=== PATIENT | male | born 1970 ===

== ENCOUNTER 2017-12-02 23:02 | Inpatient (IN) | payer MEDICARE ==
[2017-12-02] MEDS ORDERED: ASPIRIN PO ONE (23:21)
[2017-12-02 23:49] LABS: Basophils # (Auto) 0.1 K/mm3 (0.0-0.1); Basophils % (Auto) 0.9 % (0.0-1.8); Eosinophils # (Auto) 0.2 K/mm3 (0.0-0.4); Eosinophils % (Auto) 1.3 % (0.0-4.3); Hematocrit 32.4 % (35.5-45.6); Hemoglobin 10.4 gm/dl (11.8-15.2); Lymphocytes # (Auto) 3.4 K/mm3 (1.2-5.4); Lymphocytes % (Auto) 27.3 % (13.4-35.0); Mean Corpuscular HGB Conc 32 % (32-34); Mean Corpuscular Hemoglobin 27 pg (28-32); Mean Corpuscular Volume 85 fl (84-94); Monocytes # (Auto) 1.2 K/mm3 (0.0-0.8); Monocytes % (Auto) 9.2 % (0.0-7.3); Platelet Count 222 K/mm3 (140-440); Red Blood Count 3.81 M/mm3 (3.65-5.03); Red Cell Distribution Width 15.1 % (13.2-15.2)
[2017-12-03 00:42] LABS: Calcium 10.1 mg/dL (8.4-10.2)
[2017-12-03] MEDS ORDERED: TYLENOL PO ONE (01:20)
[2017-12-03] MEDS ORDERED: APRESOLINE IV ONE (01:20)
--- NOTE | 2017-12-03 01:24 | Emergency Department Report ---
ED Chest Pain HPI - General Chief Complaint: Chest Pain Stated Complaint: CHEST PAIN Time Seen by Provider: 12/03/17 01:12 Source: patient Mode of arrival: Ambulatory Limitations: No Limitations - History of Present Illness Initial Comments: Patient is a 47-year-old male history of hypertension and end stage renal disease on hemodialysis. Patient presented to the ER complaining of left-sided chest pain and headache since yesterday. Patient stated that his last dialysis was Saturday. His blood pressure in the ER is 201/119. Patient describes his chest pain as left-sided, heaviness, does not radiates associated shortness of breath. Patient denied any fever or cough. MD Complaint: chest pain -: days(s) Onset: during rest Pain Location: left chest Pain Radiation: none Severity: moderate Severity scale (0 -10): 6 Quality: heaviness - Related Data Allergies Allergy/AdvReac Type Severity Reaction Status Date / Time No Known Allergies Allergy Verified 12/02/17 23:21 Heart Score - HEART Score History: Moderately suspicious EKG: Non-specific Age: 45-65 Risk factors: > 3 risk factors or hx of atherosclerotic disease Troponin: < normal limit HEART Score: 5 - Critical Actions Critical Actions: 4-6 pts:12-16.6% risk of adverse cardiac event. Should be admitted ED Review of Systems ROS: Stated complaint: CHEST PAIN Other details as noted in HPI Comment: All other systems reviewed and negative Constitutional: denies: chills, fever Respiratory: denies: cough, orthopnea Cardiovascular: chest pain, dyspnea on exertion, orthopnea. denies: palpitations Gastrointestinal: denies: abdominal pain, nausea, vomiting, diarrhea, constipation, hematemesis, hematochezia Musculoskeletal: denies: back pain Neurological: headache. denies: weakness, numbness, paresthesias, confusion, abnormal gait, vertigo ED Past Medical Hx - Past Medical History Previous Medical History?: Yes Hx Hypertension: Yes Hx Renal Disease: Yes (Dialysis Tues, th, Sat) Additional medical history: "weak heart muscle". sleep apnea - Surgical History Past Surgical History?: Yes Hx Internal Defibrillator: Yes Additional Surgical History: left shunt upper arm. tendon repair left hand. right ankle pins and screws. - Social History Smoking Status: Never Smoker Substance Use Type: None ED Physical Exam - General Limitations: No Limitations General appearance: alert, in no apparent distress - Head Head exam: Present: atraumatic, normocephalic, normal inspection - Eye Eye exam: Present: normal appearance, PERRL - ENT ENT exam: Present: normal exam, normal orophraynx, mucous membranes moist - Neck Neck exam: Present: normal inspection, full ROM. Absent: tenderness, meningismus, lymphadenopathy - Respiratory Respiratory exam: Present: normal lung sounds bilaterally, rales, decreased breath sounds. Absent: wheezes, rhonchi, stridor, accessory muscle use, prolonged expiratory - Cardiovascular Cardiovascular Exam: Present: regular rate, normal rhythm, normal heart sounds - GI/Abdominal GI/Abdominal exam: Present: soft, normal bowel sounds. Absent: distended, tenderness, guarding, rebound, rigid, organomegaly, mass, bruit, pulsatile mass , hernia - Extremities Exam Extremities exam: Present: normal inspection, full ROM, normal capillary refill - Back Exam Back exam: Present: normal inspection, full ROM. Absent: tenderness, CVA tenderness (R), CVA tenderness (L) - Neurological Exam Neurological exam: Present: alert, oriented X3, CN II-XII intact, normal gait - Skin Skin exam: Present: warm, intact, normal color ED Course Vital Signs 12/02/17 23:16 Temperature 98.4 F Pulse Rate 97 H Respiratory 18 Rate Blood Pressure 201/119 O2 Sat by Pulse 98 Oximetry - Reevaluation(s) Reevaluation #1: 12/03/17 02:14 I discussed the patient is Dr. Perez who is on for Dr. Holcomb. Dr. Perez stated that patient will need to be admitted to the hospitalist and he will do dialysis in the morning. ED Medical Decision Making - Lab Data Result diagrams: 12/02/17 23:31 12/02/17 23:31 - EKG Data -: EKG Interpreted by Ny EKG shows normal: sinus rhythm - EKG Data Interpretation: no acute changes - Radiology Data Radiology results: report reviewed Referring Physician: ZACHARY OLIVER Patient Name: ANGELITO FREGOSO Date of : 1970 Sex: Male Report Date: 2017-12-03 Report Status: Finalized Findings [facility] [address] [place] [address] XRay Report Signed Patient: ANGELITO FREGOSO MR#: [id number] : 1970 Acct:[id number] Age/Sex: 47 / M ADM Date: 12/02/17 Loc: ED Attending Dr: Ordering Physician: ZACHARY OLIVER Date of Service: 12/03/17 Procedure(s): XR chest 1V ap Accession Number(s): [id number] cc: ZACHARY OLIVER Fluoro Time In Minutes: FINAL REPORT PROCEDURE: XR CHEST 1V AP TECHNIQUE: Chest radiograph anteroposterior view. CPT 55892 HISTORY: chest pain COMPARISON: No prior studies are available for comparison. FINDINGS: Heart: Slightly enlarged Mediastinum/Vessels: Normal. Lungs/Pleural space: Lungs are clear and expanded. There are no infiltrates, effusions or pneumothoraces.. Bony thorax: No acute osseous abnormality. Life support devices: Pacemaker leads are in proper position.. IMPRESSION: Heart is borderline enlarged. There are no infiltrates, effusions or pneumothoraces. Transcribed By: CO Dictated By: TARIQ QUINONES MD Electronically Authenticated By: TARIQ QUINONES MD Signed Date/Time: 12/03/17142 DD/ 2 TD/TT: 12/03/17142 - Medical Decision Making I discussed the patient was Dr. Ema Benavidez, she agreed to admit the patient to her service. Critical care attestation.: If time is entered above; I have spent that time in minutes in the direct care of this critically ill patient, excluding procedure time. ED Disposition Clinical Impression: Volume overload, ESRD needing dialysis, Headache Disposition: - OP ADMIT IP TO THIS HOSP Is pt being admited?: Yes Condition: Stable Referrals: PRIMARY CARE, [Primary Care Provider] - 3-5 Days
--- NOTE | 2017-12-03 01:48 | XRay Report ---
FINAL REPORT PROCEDURE: XR CHEST 1V AP TECHNIQUE: Chest radiograph anteroposterior view. CPT 56878 HISTORY: chest pain COMPARISON: No prior studies are available for comparison. FINDINGS: Heart: Slightly enlarged Mediastinum/Vessels: Normal. Lungs/Pleural space: Lungs are clear and expanded. There are no infiltrates, effusions or pneumothoraces.. Bony thorax: No acute osseous abnormality. Life support devices: Pacemaker leads are in proper position.. IMPRESSION: Heart is borderline enlarged. There are no infiltrates, effusions or pneumothoraces.
[2017-12-03 02:02] LABS: Chol/HDL Ratio 4.26 %
[2017-12-03] MEDS ORDERED: ASPIRIN ONE (02:28)
--- NOTE | 2017-12-03 02:45 | Cat Scan Report ---
FINAL REPORT PROCEDURE: CT HEAD/BRAIN WO CON TECHNIQUE: Computerized tomography of the head was performed without contrast material. HISTORY: headache, BP 201/119 COMPARISON: No prior studies are available for comparison. FINDINGS: Skull and scalp: Normal. Paranasal sinuses: Normal. Ventricles and subarachnoid spaces: Normal. Cerebrum: No evidence of hemorrhage, acute infarction or mass . Cerebellum and brainstem: No evidence of hemorrhage, acute infarction or mass. Vasculature: Normal. Comments: None. IMPRESSION: Normal Examination
[2017-12-03] MEDS ORDERED: ZOFRAN IV PRN (03:14)
[2017-12-03] MEDS ORDERED: SODIUM CHLORIDE FLUSH SYRINGE 10 ML IV PRN (03:14)
--- NOTE | 2017-12-03 03:22 | History and Physical Report ---
History of Present Illness Date of examination: 12/03/17 History of present illness: 47-year-old man with a history of hypertension, end-stage renal disease on dialysis, Saturday, , so comes emergency room with complaints of shortness of breath, nausea vomiting 1 week. Also complaining of chest pain in the left chest which she described as sharp in nature, intensity 5/10, no radiation and he cannot identify exacerbating or relieving factors. Admits to shortness of breath, no diaphoresis or palpitation. He had a stress test less than 6 months ago at [facility], results unknown Review of systems Constitutional: no weight loss, chills Ears, eyes, nose, mouth and throat: no nasal congestion, no nasal discharge, no sinus pressure, no vision change, no red eye. Neck: No neck pain or rigidity. Cardiovascular: no palpitations Respiratory: No cough Gastrointestinal: no abdominal pain, hematochezia Genitourinary : no dysuria, frequency , no hematuria Musculoskeletal: no joint swelling or muscle ache Integumentary: no rash, no pruritis Neurological: no parathesias, no numbness, no focal weakness Endocrine: no cold or heat intolerance, no polyuria or polydipsia Hematologic/Lymphatic: no easy bruising, no easy bleeding, no gland swelling Allergic/Immunologic: no urticaria, no angioedema. PAST MEDICAL HISTORY: hypertension, end-stage renal disease on dialysis PAST SURGICAL HISTORY: AV fistula, ankle, left hand surgery, AICD SOCIAL HISTORY: Denies alcohol, tobacco, drugs FAMILY HISTORY: Hypertension Medications and Allergies Allergies Allergy/AdvReac Type Severity Reaction Status Date / Time No Known Allergies Allergy Verified 12/02/17 23:21 Exam - Physical Exam Narrative exam: Gen. appearance: Patient lying in bed, no apparent distress HEENT: Normocephalic, atraumatic, pupils equally round and reactive to light, extraocular movement intact, and no sclericterus,. No JVD or thyromegaly or nodule,neck supple, no carotid bruit ,mucous membranes moist, no exudate or erythema Heart: S1, S2, regular rate and rhythm Lungs: Clear to auscultation bilaterally, breathing comfortable Abdomen: Positive bowel sounds, nontender, nondistended, no organomegaly Extremity: No edema, cyanosis, clubbing Skin: No rash, nodules, warm, dry Neuro: Oriented 3, cranial nerves II-12 intact, speech is fluent, motor and sensory intact - Constitutional Vitals: Temp Pulse Resp BP Pulse Ox 98.4 F 97 H 18 201/119 98 12/02/17 23:16 12/02/17 23:16 12/02/17 23:16 12/02/17 23:16 12/02/17 23:16 Results - Labs CBC & Chem 7: 12/02/17 23:31 12/02/17 23:31 Labs: Abnormal lab results 12/02/17 12/02/17 Range/Units 23:31 23:31 WBC 12.6 H (4.5-11.0) K/mm3 Hgb 10.4 L (11.8-15.2) gm/dl Hct 32.4 L (35.5-45.6) % MCH 27 L (28-32) pg [place] % (Auto) 9.2 H (0.0-7.3) % [place] # 1.2 H (0.0-0.8) K/mm3 Chloride 95.8 L (98-107) mmol/L BUN 61 H (9-20) mg/dL Creatinine 11.8 H (0.8-1.5) mg/dL Glucose 103 H (75-100) mg/dL Troponin T 0.291 H* (0.00-0.029) ng/mL Triglycerides 165 H (2-149) mg/dL Cholesterol 209 H (50-199) mg/dL LDL Cholesterol Direct 138 H (50-130) mg/dL - Imaging and Cardiology EKG: image reviewed Chest x-ray: image reviewed CT Scan - head: report reviewed Assessment and Plan Assessment Hypertensive urgency Chest pain End-stage renal disease.Needing Dialysis Plan Admit medicine Start IV calcium, check cardiac enzymes, consult cardiology Consult renal for dialysis DVT prophylaxis
[2017-12-03 03:49] LABS: Creatine Kinase MB 3.9 ng/mL (0.0-4.0)
[2017-12-03] MEDS ORDERED: APRESOLINE IV PRN (05:16)
[2017-12-03] MEDS: TYLENOL PO PRN ×2 (06:30→17:45)
--- NOTE | 2017-12-03 09:22 | Consultation ---
History of Present Illness - Reason for Consult Consult date: 12/03/17 - History of Present Illness pt was seen and examined -consult dictated Medications and Allergies Allergies Allergy/AdvReac Type Severity Reaction Status Date / Time No Known Allergies Allergy Verified 12/02/17 23:21 Home Medications Medication Instructions Recorded Confirmed Last Taken Type Calcitriol 0.5 mg PO DAILY 12/03/17 12/03/17 Unknown History Carvedilol 50 mg PO BID 12/03/17 12/03/17 Unknown History Clonidine 0.2 mg PO DAILY 12/03/17 12/03/17 Unknown History Dialyvite 800 Plus D Wafer 1 tab PO QPM 12/03/17 12/03/17 Unknown History ISOSORBIDE MONOnitrate 60 mg PO DAILY 12/03/17 12/03/17 Unknown History Minoxidil 2.5 mg PO BID 12/03/17 12/03/17 Unknown History Pantoprazole 40 mg PO DAILY 12/03/17 12/03/17 Unknown History Promethazine 25 mg PO Q6H PRN 12/03/17 12/03/17 Unknown History Sensipar 30 mg PO DAILY 12/03/17 12/03/17 Unknown History Valsartan 160 mg PO DAILY 12/03/17 12/03/17 Unknown History Vitamin D3 2,000 units PO DAILY 12/03/17 12/03/17 Unknown History amLODIPine 10 mg PO DAILY 12/03/17 12/03/17 Unknown History Active Meds: Active Medications Acetaminophen (Tylenol) 650 mg PO Q4H PRN PRN Reason: Pain MILD(1-3)/Fever >100.5/GOMEZ Last Admin: 12/03/17 06:30 Dose: 650 mg Amlodipine Besylate (Norvasc) 10 mg PO DAILY [facility] Calcitriol (Rocaltrol) 0.5 mcg PO QDAY [facility] Cholecalciferol (Vitamin D3) 2,000 unit PO DAILY [facility] Cinacalcet (Sensipar) 30 mg PO QDAY [facility] Clonidine HCl (Catapres) 0.2 mg PO DAILY [facility] Enoxaparin Sodium (Lovenox) 30 mg SUB-Q QDAY [facility] Hydralazine HCl (Apresoline) 10 mg IV Q6HR PRN PRN Reason: Hypertension Last Admin: 12/03/17 06:30 Dose: 10 mg Isosorbide Mononitrate (Imdur) 60 mg PO QDAY [facility] Minoxidil (Loniten) 2.5 mg PO BID [facility] Ondansetron HCl (Zofran) 4 mg IV Q8H PRN PRN Reason: Nausea And Vomiting Last Admin: 12/03/17 06:22 Dose: 4 mg Pantoprazole Sodium (Protonix) 40 mg PO DAILY [facility] Sodium Chloride (Sodium Chloride Flush Syringe 10 Ml) 10 ml IV BID [facility] Sodium Chloride (Sodium Chloride Flush Syringe 10 Ml) 10 ml IV PRN PRN PRN Reason: LINE FLUSH Valsartan (Diovan) 160 mg PO QDAY [facility] Exam - Constitutional Vitals: Temp Pulse Resp BP Pulse Ox 98.1 F 98 H 19 150/82 99 12/03/17 08:33 12/03/17 08:33 12/03/17 08:33 12/03/17 08:33 12/03/17 08:33 Results - Labs CBC & Chem 7: 12/02/17 23:31 12/02/17 23:31 Labs: Abnormal lab results 12/02/17 12/02/17 12/03/17 Range/Units 23:31 23:31 03:12 WBC 12.6 H (4.5-11.0) K/mm3 Hgb 10.4 L (11.8-15.2) gm/dl Hct 32.4 L (35.5-45.6) % MCH 27 L (28-32) pg [place] % (Auto) 9.2 H (0.0-7.3) % [place] # 1.2 H (0.0-0.8) K/mm3 Chloride 95.8 L (98-107) mmol/L BUN 61 H (9-20) mg/dL Creatinine 11.8 H (0.8-1.5) mg/dL Glucose 103 H (75-100) mg/dL Troponin T 0.291 H* 0.293 H* (0.00-0.029) ng/mL Triglycerides 165 H (2-149) mg/dL Cholesterol 209 H (50-199) mg/dL LDL Cholesterol Direct 138 H (50-130) mg/dL 12/03/17 Range/Units 05:25 WBC (4.5-11.0) K/mm3 Hgb (11.8-15.2) gm/dl Hct (35.5-45.6) % MCH (28-32) pg [place] % (Auto) (0.0-7.3) % [place] # (0.0-0.8) K/mm3 Chloride (98-107) mmol/L BUN (9-20) mg/dL Creatinine (0.8-1.5) mg/dL Glucose (75-100) mg/dL Troponin T 0.290 H* (0.00-0.029) ng/mL Triglycerides (2-149) mg/dL Cholesterol (50-199) mg/dL LDL Cholesterol Direct (50-130) mg/dL
[2017-12-03] MEDS ORDERED: NACL 0.9% 100 ML IV PRN (09:33)
[2017-12-03] MEDS: ROCALTROL PO SCH (09:48)
[2017-12-03] MEDS: PROTONIX PO SCH (09:48)
[2017-12-03] MEDS: LOVENOX SUB-Q SCH (09:48)
[2017-12-03] MEDS: SENSIPAR PO SCH (09:48)
[2017-12-03] MEDS: VITAMIN D3 PO SCH (09:48)
[2017-12-03] MEDS: LONITEN PO SCH ×2 (10:00→22:38)
[2017-12-03] MEDS ORDERED: VALSARTAN 160 MG PO SCH (10:00)
[2017-12-03] MEDS ORDERED: NORVASC PO SCH (10:00)
[2017-12-03] MEDS ORDERED: NON-FORMULARY (Clonidine 0.2 MG) PO SCH (10:00)
[2017-12-03] MEDS ORDERED: NON-FORMULARY (Amlodipine 10 MG) PO SCH (10:00)
[2017-12-03] MEDS ORDERED: CALCITRIOL 0.5 MG PO SCH (10:00)
[2017-12-03] MEDS: IMDUR PO SCH (10:00)
[2017-12-03] MEDS ORDERED: NON-FORMULARY (Isosorbide Mononitrate 60 MG) PO SCH (10:00)
[2017-12-03] MEDS ORDERED: NON-FORMULARY (Pantoprazole 40 MG) PO SCH (10:00)
[2017-12-03] MEDS ORDERED: MINOXIDIL 2.5 MG PO SCH (10:00)
[2017-12-03] MEDS: CATAPRES PO SCH (10:00)
[2017-12-03] MEDS ORDERED: DIOVAN PO SCH (10:00)
[2017-12-03] MEDS ORDERED: VITAMIN D3 2000 UNIT PO SCH (10:00)
[2017-12-03] MEDS ORDERED: SENSIPAR 30 MG PO SCH (10:00)
--- NOTE | 2017-12-03 10:28 | Consultation ---
History of Present Illness Consult date: 12/03/17 Consult reason: chest pain History of present illness: This is a 47yr old male with a history of hypertension, end stage renal disease. Patient also reports a history of hypertrophic cardiomyopathy and has an indwelling cardiac defibrillator. There is no history of coronary artery disease. In July 2017 while living in [place], patient reports he underwent a cardiac cath that was reported as normal. Patient has since transitioned to this area and has not followed with a driver sales as an outpatient. He presents to this hospital with complaints of chest pain, shortness of breath and nausea vomiting. Noted hypertensive on presentation with a systolic blood pressure 201 and admitted for further management. A cardiac consultation is requested for evaluation of atypical chest pain. His most recent cardiac workup was done at [facility] 1 month ago. He had a persantine thallium stress test that reports no ischemia. An echocardiogram demonstrates a normal left ventricular size, ejection fraction 60%. In addition , there was a moderate left ventricular hypertrophy 12 lead ECG is a sinus rhythm with LVH. Medications and Allergies Allergies Allergy/AdvReac Type Severity Reaction Status Date / Time No Known Allergies Allergy Verified 12/02/17 23:21 Home Medications Medication Instructions Recorded Confirmed Last Taken Type Calcitriol 0.5 mg PO DAILY 12/03/17 12/03/17 Unknown History Carvedilol 50 mg PO BID 12/03/17 12/03/17 Unknown History Clonidine 0.2 mg PO DAILY 12/03/17 12/03/17 Unknown History Dialyvite 800 Plus D Wafer 1 tab PO QPM 12/03/17 12/03/17 Unknown History ISOSORBIDE MONOnitrate 60 mg PO DAILY 12/03/17 12/03/17 Unknown History Minoxidil 2.5 mg PO BID 12/03/17 12/03/17 Unknown History Pantoprazole 40 mg PO DAILY 12/03/17 12/03/17 Unknown History Promethazine 25 mg PO Q6H PRN 12/03/17 12/03/17 Unknown History Sensipar 30 mg PO DAILY 12/03/17 12/03/17 Unknown History Valsartan 160 mg PO DAILY 12/03/17 12/03/17 Unknown History Vitamin D3 2,000 units PO DAILY 12/03/17 12/03/17 Unknown History amLODIPine 10 mg PO DAILY 12/03/17 12/03/17 Unknown History Active Meds: Active Medications Acetaminophen (Tylenol) 650 mg PO Q4H PRN PRN Reason: Pain MILD(1-3)/Fever >100.5/GOMEZ Last Admin: 12/03/17 06:30 Dose: 650 mg Amlodipine Besylate (Norvasc) 10 mg PO DAILY [facility] Calcitriol (Rocaltrol) 0.5 mcg PO QDAY [facility] Last Admin: 12/03/17 09:48 Dose: 0.5 mcg Cholecalciferol (Vitamin D3) 2,000 unit PO DAILY [facility] Last Admin: 12/03/17 09:48 Dose: 2,000 unit Cinacalcet (Sensipar) 30 mg PO QDAY [facility] Last Admin: 12/03/17 09:48 Dose: 30 mg Clonidine HCl (Catapres) 0.2 mg PO DAILY [facility] Enoxaparin Sodium (Lovenox) 30 mg SUB-Q QDAY [facility] Last Admin: 12/03/17 09:48 Dose: 30 mg Hydralazine HCl (Apresoline) 10 mg IV Q6HR PRN PRN Reason: Hypertension Last Admin: 12/03/17 06:30 Dose: 10 mg Sodium Chloride (Nacl 0.9%) 100 mls @ 999 mls/hr IV MADELINE PRN PRN Reason: Hypotension Isosorbide Mononitrate (Imdur) 60 mg PO QDAY [facility] Minoxidil (Loniten) 2.5 mg PO BID [facility] Ondansetron HCl (Zofran) 4 mg IV Q8H PRN PRN Reason: Nausea And Vomiting Last Admin: 12/03/17 06:22 Dose: 4 mg Pantoprazole Sodium (Protonix) 40 mg PO DAILY [facility] Last Admin: 12/03/17 09:48 Dose: 40 mg Sodium Chloride (Sodium Chloride Flush Syringe 10 Ml) 10 ml IV BID [facility] Sodium Chloride (Sodium Chloride Flush Syringe 10 Ml) 10 ml IV PRN PRN PRN Reason: LINE FLUSH Valsartan (Diovan) 160 mg PO QDAY [facility] Physical Examination Vital Signs Temp Pulse Resp BP Pulse Ox 98.4 F 97 H 18 201/119 98 12/02/17 23:16 12/02/17 23:16 12/02/17 23:16 12/02/17 23:16 12/02/17 23:16 General appearance: no acute distress HEENT: Positive: PERRL Cardiac: Positive: Reg Rate and Rhythm Lungs: Positive: Decreased Breath Sounds Neuro: Positive: Grossly Intact Extremities: Absent: edema Results 12/02/17 23:31 12/02/17 23:31 Cardiac Enzymes 12/03/17 Range/Units 03:14 CK-MB (CK-2) 3.9 (0.0-4.0) ng/mL Lipids 12/02/17 Range/Units 23:31 Triglycerides 165 H (2-149) mg/dL Cholesterol 209 H (50-199) mg/dL HDL Cholesterol 49 (40-59) mg/dL Cholesterol/HDL Ratio 4.26 % CBC 12/02/17 Range/Units 23:31 WBC 12.6 H (4.5-11.0) K/mm3 RBC 3.81 (3.65-5.03) M/mm3 Hgb 10.4 L (11.8-15.2) gm/dl Hct 32.4 L (35.5-45.6) % Plt Count 222 (140-440) K/mm3 Lymph # 3.4 (1.2-5.4) K/mm3 [place] # 1.2 H (0.0-0.8) K/mm3 Eos # 0.2 (0.0-0.4) K/mm3 Baso # 0.1 (0.0-0.1) K/mm3 Comprehensive Metabolic Panel 12/02/17 Range/Units 23:31 Sodium 144 (137-145) mmol/L Potassium 4.4 (3.6-5.0) mmol/L Chloride 95.8 L (98-107) mmol/L Carbon Dioxide 28 (22-30) mmol/L BUN 61 H (9-20) mg/dL Creatinine 11.8 H (0.8-1.5) mg/dL Glucose 103 H (75-100) mg/dL Calcium 10.1 (8.4-10.2) mg/dL Assessment and Plan Hypertensive urgency Chest pain, atypical MPI 10/2017 at [facility], [place]: no ischemia. Echo 10/2017 at [facility], [place]: LVEF 60%. [facility] 07/2017 in [place]: normal per pt ESRD on dialysis TTS Hypertrophic Cardiomyopathy Presence of AICD Elevated troponin likely in the setting of renal failure.
[2017-12-03] MEDS ORDERED: NACL 0.9 (PRIMING MACHINE ONLY DIALYSIS) MC ONE (11:16)
[2017-12-03 16:43] LABS: Creatine Kinase MB 4.5 ng/mL (0.0-4.0)
[2017-12-03] MEDS: PROCARDIA XL PO SCH (17:37)
[2017-12-03] MEDS: DIOVAN PO SCH ×2 (17:38→22:39)
--- NOTE | 2017-12-03 17:45 | Progress Note ---
Assessment and Plan Assessment and plan: Patient is a 47-year-old man with a history of hypertension, end-stage renal disease on dialysis, Saturday, , so comes emergency room with complaints of shortness of breath, nausea vomiting 1 week. Also complaining of chest pain in the left chest which she described as sharp in nature, intensity 5/10, no radiation and he cannot identify exacerbating or relieving factors. On presentation to the ER, patients BP was noted to 201/119. Admits to shortness of breath, no diaphoresis or palpitation. He had a stress test less than 6 months ago at [facility], results unknown Hypertensive urgency Atypical Chest pain likely secondary to costochondritis Hypertrophic Cardiomyopathy MPI 10/2017 at [facility]: no ischemia. Echo 10/2017 at [facility]: LVEF 60%. 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 Leukocytosis likely secondary to reactive nature. No clear evidence of infection , will monitor. Start IV calcium, check cardiac enzymes Cardiology input noted Anticipate discharge in AM if stable Discussed with cake inspector and also with Toucher Up DVT prophylaxis History Interval history: Patient seen and examined in no acute distress. Resting comfortably. Family at the bedside Hospitalist Physical - Physical exam Narrative exam: VITAL SIGNS: Reviewed. GENERAL: The patient appeared well nourished and normally developed. Vital signs as documented. HEAD: No signs of head trauma. EYES: Pupils are equal. Extraocular motions intact. EARS: Hearing grossly intact. MOUTH: Oropharynx is normal. NECK: No adenopathy, no JVD. CHEST: Chest with clear breath sounds bilaterally. No wheezes, rales, or rhonchi. CARDIAC: Regular rate and rhythm. S1 and S2, without murmurs, gallops, or rubs. VASCULAR: No Edema. Peripheral pulses normal and equal in all extremities. ABDOMEN: Soft, without detectable tenderness. No sign of distention. No rebound or guarding, and no masses palpated. Bowel Sounds normal. MUSCULOSKELETAL: Good range of motion of all major joints. Extremities without clubbing, cyanosis or edema. NEUROLOGIC EXAM: Alert and oriented x 3. No focal sensory or strength deficits. Speech normal. Follows commands. PSYCHIATRIC: Mood normal. SKIN: SKIN Tattoes. - Constitutional Vitals: Temp Pulse Resp BP Pulse Ox 98.9 F 96 H 18 137/85 99 12/03/17 16:23 12/03/17 17:38 12/03/17 16:23 12/03/17 17:38 12/03/17 16:23 General appearance: Present: no acute distress Results - Labs CBC & Chem 7: 12/02/17 23:31 12/02/17 23:31 Labs: Laboratory Last Values WBC 12.6 K/mm3 (4.5-11.0) H 12/02/17 23:31 RBC 3.81 M/mm3 (3.65-5.03) 12/02/17 23: Hgb 10.4 gm/dl (11.8-15.2) L 12/02/17 23: Hct 32.4 % (35.5-45.6) L 12/02/17 23: MCV 85 fl (84-94) 12/02/17 23: MCH 27 pg (28-32) L 12/02/17 23: MCHC 32 % (32-34) 12/02/17 23: RDW 15.1 % (13.2-15.2) 12/02/17 23: Plt Count 222 K/mm3 (140-440) 12/02/17 23: Lymph % (Auto) 27.3 % (13.4-35.0) 12/02/17 23: [place] % (Auto) 9.2 % (0.0-7.3) H 12/02/17 23: Eos % (Auto) 1.3 % (0.0-4.3) 12/02/17 23: Baso % (Auto) 0.9 % (0.0-1.8) 12/02/17 23: Lymph # 3.4 K/mm3 (1.2-5.4) 12/02/17 23: [place] # 1.2 K/mm3 (0.0-0.8) H 12/02/17 23: Eos # 0.2 K/mm3 (0.0-0.4) 12/02/17 23: Baso # 0.1 K/mm3 (0.0-0.1) 12/02/17 23: Seg Neutrophils % 61.3 % (40.0-70.0) 12/02/17 23:31 Seg Neutrophils # 7.7 K/mm3 (1.8-7.7) 12/02/17 23:31 Sodium 144 mmol/L (137-145) 12/02/17 23:31 Potassium 4.4 mmol/L (3.6-5.0) 12/02/17 23:31 Chloride 95.8 mmol/L (98-107) L 12/02/17 23:31 Carbon Dioxide 28 mmol/L (22-30) 12/02/17 23:31 Anion Gap 25 mmol/L 12/02/17 23:31 BUN 61 mg/dL (9-20) H 12/02/17 23:31 Creatinine 11.8 mg/dL (0.8-1.5) H 12/02/17 23:31 Estimated GFR 5 ml/min 12/02/17 23:31 BUN/Creatinine Ratio 5 % 12/02/17 23:31 Glucose 103 mg/dL (75-100) H 12/02/17 23:31 Calcium 10.1 mg/dL (8.4-10.2) 12/02/17 23:31 Total Creatine Kinase 132 units/L (55-170) 12/03/17 16:08 CK-MB (CK-2) 4.5 ng/mL (0.0-4.0) H 12/03/17 16:08 CK-MB (CK-2) Rel Index 3.4 (0-4) 12/03/17 16:08 Troponin T 0.350 ng/mL (0.00-0.029) H* D 12/03/17 16:08 Triglycerides 165 mg/dL (2-149) H 12/02/17 23:31 Cholesterol 209 mg/dL (50-199) H 12/02/17 23:31 LDL Cholesterol Direct 138 mg/dL (50-130) H 12/02/17 23:31 HDL Cholesterol 49 mg/dL (40-59) 12/02/17 23:31 Cholesterol/HDL Ratio 4.26 % 12/02/17 23:31
[2017-12-03] MEDS ORDERED: CARVEDILOL 50 MG PO SCH (22:00)
[2017-12-03] MEDS: COREG PO SCH (22:39)
[2017-12-03] MEDS: SODIUM CHLORIDE FLUSH SYRINGE 10 ML IV SCH (22:40)
--- NOTE | 2017-12-04 06:24 | Consultation ---
REASON FOR CONSULTATION: Renal failure. HISTORY OF PRESENT ILLNESS: This 47-year-old -[place] male with end-stage renal disease, hypertension, was brought to the Emergency Room with complaints of shortness of breath and chest pain over the left anterior chest wall. The patient states that he goes to [facility] for dialysis treatments on Saturday, , Saturday. He went to dialysis on past Saturday and they took off only 3 liters and he had 2 liters extra. In the ER, the patient was reported to have blood pressure of 201/119, pulse 97, afebrile. BUN 61, creatinine 11.8, potassium 4.4. PAST MEDICAL HISTORY: Hypertension, end-stage renal disease, status post AICD. PERSONAL HISTORY: No history of smoking, alcohol, or drug abuse. FAMILY HISTORY: No family history of kidney failure. ALLERGIES: None. CURRENT MEDICATIONS: Calcitriol 0.5 mcg once a day, carvedilol 50 mg q.12h, cholecalciferol 2000 units once a day, Sensipar 30 mg a day, clonidine 0.2 mg once a day, Lovenox 30 mg subQ once a day, isosorbide 60 mg once a day, minoxidil 2.5 mg p.o. b.i.d., nifedipine 90 mg a day, Protonix 40 mg a day, valsartan 160 mg b.i.d. REVIEW OF SYSTEMS: The patient complains of dull, left-sided chest pain without radiation, not associated with nausea or vomiting. Gets shortness of breath on exertion. Denies abdomen pain, nausea, or vomiting. Denies fever or chills. Denies difficulty swallowing. Denies dysuria or hematuria. Denies swelling of the legs. Other review of systems reviewed and negative. PHYSICAL EXAMINATION: GENERAL: The patient is an alert, oriented, well-developed male. VITAL SIGNS: Blood pressure 146/79, pulse 80, afebrile. HEENT: Conjunctivae pale. Lips noncyanotic. NECK: No JVD, no thyroid enlargement. LUNGS: Clear. HEART: S1, S2 regular. No pericardial rub. ABDOMEN: Soft, bowel sounds present, nontender, no masses palpable. EXTREMITIES: No significant edema. Left upper arm AV access has bruit and thrill. LABORATORY DATA: WBC 12.6, hemoglobin 10.4, hematocrit 32.4, platelets 222. Sodium 144, potassium 4.4, chloride 95, CO2 is 28, BUN 61, creatinine 11.8, glucose 103, calcium 10.1. Troponin 0.29-0.35. ASSESSMENT AND PLAN: 1. End-stage renal disease. 2. Hypertensive urgency. 3. Chest pain. 4. Anemia in chronic kidney disease. 5. Mild leukocytosis. Hemodialysis with ultrafiltration as ordered. Optimize blood pressure medications. Hold off on Epogen until blood pressure is stabilized. Cardiology consult reviewed. Echocardiogram showed left ventricular ejection fraction of 60% and moderate left ventricular hypertrophy. Thank you for the consultation. JOB# [id number] SIGIFREDO/DARIRON
--- NOTE | 2017-12-04 07:41 | Discharge Summary ---
Providers - Providers Date of Admission: 12/03/17 03:14 Attending physician: CATALINA LINK MD 12/03/17 02:13 Consult to Physician [CONS] Stat Comment: Consulting Provider: FERMÍN KELLY Physician Instructions: Reason For Exam: volume overload 12/03/17 03:14 Consult to Physician [CONS] Routine Comment: Consulting Provider: OLGA CALI Physician Instructions: Reason For Exam: cp Primary care physician: SOLID WASTE DISPOSAL MANAGER Hospitalization Reason for admission: chest apin Condition: Stable Hospital course: Patient is a 47-year-old man with a history of hypertension, end-stage renal disease on dialysis, Saturday, , so comes emergency room with complaints of shortness of breath, nausea vomiting 1 week. Also complaining of chest pain in the left chest which she described as sharp in nature, intensity 5/10, no radiation and he cannot identify exacerbating or relieving factors. On presentation to the ER, patients BP was noted to 201/119. Admits to shortness of breath, no diaphoresis or palpitation. He had a stress test less than 6 months ago at [facility], results unknown. Blood pressure medications were adjusted and discussed with the patient with increased of nifedipine to 90 mg. Patient also was started on Fioricet for recurrent headaches. He did report improvement prior to discharge. The patient complained of intermittent nausea or vomiting recommended an outpatient follow-up with GI. Otherwise patient is clinically stable for discharge patient was evaluated by cardiology and also by nephrology during stay. Hypertensive urgency Atypical Chest pain likely secondary to costochondritis Hypertrophic Cardiomyopathy MPI 10/2017 at [facility]: no ischemia. Echo 10/2017 at [facility]: LVEF 60%. 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 GENERAL: The patient appeared well nourished and normally developed. Vital signs as documented. HEAD: No signs of head trauma. EYES: Pupils are equal. Extraocular motions intact. EARS: Hearing grossly intact. MOUTH: Oropharynx is normal. NECK: No adenopathy, no JVD. CHEST: Chest with clear breath sounds bilaterally. No wheezes, rales, or rhonchi. CARDIAC: Regular rate and rhythm. S1 and S2, without murmurs, gallops, or rubs. VASCULAR: No Edema. Peripheral pulses normal and equal in all extremities. ABDOMEN: Soft, without detectable tenderness. No sign of distention. No rebound or guarding, and no masses palpated. Bowel Sounds normal. MUSCULOSKELETAL: Good range of motion of all major joints. Extremities without clubbing, cyanosis or edema. NEUROLOGIC EXAM: Alert and oriented x 3. No focal sensory or strength deficits. Speech normal. Follows commands. PSYCHIATRIC: Mood normal. SKIN: SKIN Tattoes. - Constitutional Vitals: Temp Pulse Resp BP Pulse Ox 98.0 F 91 H 16 164/96 98 12/04/17 00:31 12/04/17 00:31 12/04/17 00:31 12/04/17 00:31 12/04/17 00:31 Plan Activity: advance as tolerated, fall precautions Diet: low salt, renal Special Instructions: record daily weights, record daily BP diary Additional Instructions: FOLLOW WITH PRIMARY ENVIRONMENTAL CONSTRUCTION ENGINEER Follow up with: PIO CAMACHO MD [Staff Physician] - 7 Days PRIMARY CARE, [Primary Care Provider] - 3-5 Days GAYATHRI LEONARDO MD [Staff Physician] - 7 Days REGINO DORAN MD [Staff Physician] - 7 Days Prescriptions: Butalb/Acetaminophen/Caffeine [Fioricet 50-300-40 mg CAP] 1 cap PO Q8HR PRN #90 cap PRN Reason: Headache NIFEdipine XL [Procardia Xl] 90 mg PO QDAY #30 tablet
[2017-12-04 07:51] LABS: Basophils # (Auto) 0.1 K/mm3 (0.0-0.1); Basophils % (Auto) 0.9 % (0.0-1.8); Eosinophils # (Auto) 0.2 K/mm3 (0.0-0.4); Eosinophils % (Auto) 1.8 % (0.0-4.3); Hematocrit 31.4 % (35.5-45.6); Hemoglobin 10.1 gm/dl (11.8-15.2); Lymphocytes # (Auto) 2.7 K/mm3 (1.2-5.4); Lymphocytes % (Auto) 28.4 % (13.4-35.0); Mean Corpuscular HGB Conc 32 % (32-34); Mean Corpuscular Hemoglobin 28 pg (28-32); Mean Corpuscular Volume 86 fl (84-94); Monocytes # (Auto) 0.9 K/mm3 (0.0-0.8); Monocytes % (Auto) 9.5 % (0.0-7.3); Platelet Count 185 K/mm3 (140-440); Red Blood Count 3.65 M/mm3 (3.65-5.03); Red Cell Distribution Width 15.4 % (13.2-15.2)
[2017-12-04 08:15] LABS: Calcium 9.3 mg/dL (8.4-10.2)
--- NOTE | 2017-12-04 09:45 | Progress Note ---
Assessment and Plan Hypertensive urgency Chest pain, atypical MPI 10/2017 at [facility]: no ischemia. Echo 10/2017 at [facility]: LVEF 60%. [facility] 07/2017 in [place]: no significant CAD per pt ESRD on dialysis TTS Presence of AICD Elevated troponin likely in the setting of renal failure. Recommendations: Hemodialysis for fluid management. Conservative cardiac management. As outpatient, we will recommend device clinic follow-up for ICD interrogation. Patient will f/u with [facility] as scheduled December 18. Subjective Date of service: 12/04/17 Interval history: Patient is resting in bed comfortably. He has no cardiac complaints. BP is better, currently 124/72. Objective Vital Signs Temp Pulse Resp BP Pulse Ox 12/04/17 09:13 88 12/04/17 07:50 98.5 F 88 18 124/72 100 12/04/17 00:31 98.0 F 91 H 16 164/96 98 12/03/17 22:39 92 H 144/85 12/03/17 20:33 98.0 F 92 H 16 144/85 99 12/03/17 17:38 96 H 137/85 12/03/17 16:23 98.9 F 96 H 18 137/85 99 12/03/17 14:00 99.1 F 78 18 148/80 12/03/17 13:45 77 145/85 12/03/17 13:30 80 146/79 12/03/17 13:15 75 149/84 12/03/17 13:00 78 160/90 12/03/17 12:45 82 145/83 12/03/17 12:30 99 H 189/100 12/03/17 12:15 98 H 165/79 12/03/17 12:00 81 141/83 12/03/17 11:45 86 142/80 12/03/17 11:30 86 150/90 12/03/17 11:15 90 156/76 12/03/17 11:00 102 H 140/85 12/03/17 10:45 87 154/94 12/03/17 10:30 98 H 168/93 12/03/17 10:15 98.0 F 88 18 155/70 - Physical Examination General: No Apparent Distress HEENT: Positive: PERRL Cardiac: Positive: Reg Rate and Rhythm Neuro: Positive: Grossly Intact Extremities: Absent: edema - Labs and Meds Cardiac Enzymes 12/03/17 Range/Units 16:08 CK-MB (CK-2) 4.5 H (0.0-4.0) ng/mL CBC 12/04/17 Range/Units 06:23 WBC 9.5 (4.5-11.0) K/mm3 RBC 3.65 (3.65-5.03) M/mm3 Hgb 10.1 L (11.8-15.2) gm/dl Hct 31.4 L (35.5-45.6) % Plt Count 185 (140-440) K/mm3 Lymph # 2.7 (1.2-5.4) K/mm3 [place] # 0.9 H (0.0-0.8) K/mm3 Eos # 0.2 (0.0-0.4) K/mm3 Baso # 0.1 (0.0-0.1) K/mm3 Comprehensive Metabolic Panel 12/04/17 Range/Units 06:23 Sodium 144 (137-145) mmol/L Potassium 4.7 (3.6-5.0) mmol/L Chloride 96.8 L (98-107) mmol/L Carbon Dioxide 30 (22-30) mmol/L BUN 41 H (9-20) mg/dL Creatinine 9.0 H (0.8-1.5) mg/dL Glucose 82 (75-100) mg/dL Calcium 9.3 (8.4-10.2) mg/dL - Imaging and Cardiology EKG: image reviewed
[2017-12-04] MEDS: ROCALTROL PO SCH (10:27)
[2017-12-04] MEDS: IMDUR PO SCH (10:27)
[2017-12-04] MEDS: SENSIPAR PO SCH (10:27)
[2017-12-04] MEDS: PROCARDIA XL PO SCH (10:28)
[2017-12-04] MEDS: DIOVAN PO SCH ×2 (10:28→22:27)
[2017-12-04] MEDS: COREG PO SCH ×2 (10:28→22:28)
[2017-12-04] MEDS: PROTONIX PO SCH (10:28)
[2017-12-04] MEDS: LOVENOX SUB-Q SCH (10:30)
[2017-12-04] MEDS: CATAPRES PO SCH (10:30)
[2017-12-04] MEDS: VITAMIN D3 PO SCH (10:30)
[2017-12-04] MEDS: LONITEN PO SCH ×2 (10:30→22:27)
[2017-12-04 20:48] VITALS: BP 140/84
[2017-12-04] MEDS: SODIUM CHLORIDE FLUSH SYRINGE 10 ML IV SCH (22:31)
== END 2017-12-04 23:45 | disposition home or self-care (01) | DRG 280 ==
LOC: ED 23:02 → 4A 12-03 03:14
PROVIDERS: ADMIT Internal Medicine; ATTEND Internal Medicine
PROC: 5A1D70Z Performance of Urinary Filtration, Intermittent, Less than 6 Hours Per Day (ICD-10-PCS; principal; 2017-12-03)
DX: I16.0 Hypertensive urgency (principal); N18.6 End stage renal disease; I21.A1 Myocardial infarction type 2; I42.2 Other hypertrophic cardiomyopathy; I12.0 Hypertensive chronic kidney disease with stage 5 chronic kidney disease or end stage renal disease; E11.22 Type 2 diabetes mellitus with diabetic chronic kidney disease; G47.30 Sleep apnea, unspecified; Z99.2 Dependence on renal dialysis; Z95.810 Presence of automatic (implantable) cardiac defibrillator; Z82.49 Family history of ischemic heart disease and other diseases of the circulatory system; Z95.828 Presence of other vascular implants and grafts; M94.0 Chondrocostal junction syndrome [Tietze]
CPT/HCPCS: 36415; 70450; 71045; 80048; 80061; 82550; 82553; 84484; 85025; 93005; 93010; 94760; 96374; J0360; J1650; J2405; J7030